=== PATIENT | female | born 1945 | race Caucasian/White ===

== ENCOUNTER 2019-09-26 07:30 | Day surgery (SDC) | payer MEDICARE, SELFPAY ==
[~2019-09-26] VITALS: Ht 157.5 cm; Wt 98.0 kg
[2019-09-26] MEDS ORDERED: BENA40TA PO (08:25)
[2019-09-26] MEDS ORDERED: OMEP20TC12 PO (08:25)
[2019-09-26] MEDS ORDERED: METF500T PO (08:25)
[2019-09-26] MEDS ORDERED: METO50TE2 PO (08:25)
[2019-09-26] MEDS ORDERED: MIDAZOLAM 2 MG/2 ML VIAL ONE (08:58)
[2019-09-26] MEDS ORDERED: fentaNYL citrate 0.05 MG/ML VIAL ONE ×2 (08:58)
[2019-09-26] MEDS ORDERED: LIDOCAINE 2% 100 MG/5 ML UJET TP ONE (08:58)
[2019-09-26] MEDS ORDERED: fentaNYL citrate 0.05 MG/ML VIAL IVP ONE (10:25)
[2019-09-26] MEDS ORDERED: MIDAZOLAM 2 MG/2 ML VIAL IVP ONE (10:25)
== END 2019-09-26 10:42 | disposition home or self-care (01) ==
LOC: MDS 07:30 → MFCC 07:30 → MDS 10:42
PROVIDERS: ATTEND Internal Medicine Gastroenterology
DX: R19.5 Other fecal abnormalities (principal); K63.5 Polyp of colon; K57.30 Diverticulosis of large intestine without perforation or abscess without bleeding; K62.5 Hemorrhage of anus and rectum; K59.00 Constipation, unspecified; I10 Essential (primary) hypertension; E11.9 Type 2 diabetes mellitus without complications; E78.5 Hyperlipidemia, unspecified; K64.8 Other hemorrhoids; M19.90 Unspecified osteoarthritis, unspecified site; Z11.59 Encounter for screening for other viral diseases
CPT/HCPCS: 45385; J2250; J3010; U0003